=== PATIENT | male | born 1970 | race Caucasian/White ===

== ENCOUNTER 2016-10-27 12:22 | Emergency (ER) | payer BC, MEDICAID ==
[~2016-10-27] VITALS: Ht 170.2 cm; Wt 80.0 kg
[2016-10-27] MEDS ORDERED: LORAZEPAM 2MG/ML CPJ IV ONE (14:15)
[2016-10-27] MEDS ORDERED: SODIUM CHLORIDE 0.9% 1,000 ML IV ONE (14:15)
[2016-10-27 14:19] LABS: BASOPHILS % 0.2 % (0.0-2.0); EOSINOPHILS % 0.1 % (0.0-5.0); HEMATOCRIT. 42.4 % (42.0-52.0); HEMOGLOBIN. 14.7 g/dL (14.0-18.0); LYMPHOCYTES % 8.7 % (20.0-50.0); MEAN CORPUSCULAR HEMOGLOBIN 31.9 pg (28.0-32.0); MEAN CORPUSCULAR VOLUME 91.9 fL (80.0-94.0); MEAN PLATELET VOLUME 7.5 fl (7.4-10.4); PLATELET 123 x1000/uL (130-400); RED BLOOD CELL COUNT 4.62 mill/uL (4.7-6.1); RED CELL DISTRIBUTION WIDTH 13.8 % (11.6-14.6)
[2016-10-27 14:47] LABS: CARBON DIOXIDE 25 mEq/L (21-32); CHLORIDE 98 mEq/L (98-107)
[2016-10-27 14:48] LABS: TROPONIN I < 0.02 ng/mL (0.00-0.04)
[2016-10-27 17:33] VITALS: BP 150/90
== END 2016-10-27 17:39 | disposition home or self-care (01) ==
LOC: ER 12:29
DX: F10.239 Alcohol dependence with withdrawal, unspecified (principal); E86.0 Dehydration; R56.9 Unspecified convulsions; I10 Essential (primary) hypertension; E78.00 Pure hypercholesterolemia, unspecified
CPT/HCPCS: 36415; 80053; 84484; 85025; 93005; 96361; 96374; 99285; J2060; J7030; Z7610